=== PATIENT | female | born 1950 | race Two or more races ===

== ENCOUNTER 2018-12-28 10:28 | Emergency (ER) | payer MEDICARE, OTHER ==
[~2018-12-28] VITALS: Ht 160 cm; Wt 77.1 kg
--- NOTE | 2018-12-28 10:41 | NUR ---
BIBRA WITH DAUGHTER FROM A GRADUATION. PT AAOX4. BREATHING EVEN AND UNLABORED. C/O DIZZYNESS AND HEADACHE 3/10 FELT ON PARIETAL AND OCCIPITAL AREA STARTED AT 930AM. NO NEUROLOGIC DEFICIT NOTED. RA REPORTS THAT PT'S BP WAS IN THE 190'S ON FIELD. TO ER BED 4. AWAITING MD FOR EVAL.
--- NOTE | 2018-12-28 11:20 | NUR ---
IV OBTAINED ON L AC ON 20G. BLOOD DARWN AND GIVEN TO [employer] PROFESSOR AT BEDSIDE
[2018-12-28 11:24] LABS: BASOPHILS # (AUTO) 0.1 /CMM (0.0-0.2); BASOPHILS % (AUTO) 1.1 % (0.0-2.0); EOSINOPHILS % (AUTO) 2.2 % (0.0-6.0); HEMATOCRIT 35 % (33-45); HEMOGLOBIN 12.1 g/dL (11.5-14.8); LYMPHOCYTES # (AUTO) 1.5 /CMM (0.8-4.8); LYMPHOCYTES % (AUTO) 23.3 % (20.0-44.0); MEAN CORPUSCULAR HGB CONC 34 g/dl (31.0-36.0); MEAN CORPUSCULAR VOLUME 86 fL (82-100); MONOCYTES # (AUTO) 0.4 /CMM (0.1-1.30); MONOCYTES % (AUTO) 5.9 % (2.0-12.0); NEUTROPHILS # (AUTO) 4.3 /CMM (1.8-8.9); NEUTROPHILS % (AUTO) 67.5 % (43.0-81.0); PLATELET COUNT (AUTO) 249 /CMM (150-450); RED BLOOD CELL COUNT(AUTO) 4.08 MIL/uL (4.0-5.2); WHITE BLOOD COUNT (AUTO) 6.4 K/uL (4.3-11.0)
--- NOTE | 2018-12-28 11:24 | NUR ---
EKG AND XRAY AT BEDSIDE
[2018-12-28 11:35] LABS: CALCIUM, SERUM 9.1 mg/dL (8.5-10.1); CARBON DIOXIDE 29 mmol/L (21-32); CHLORIDE 99 mmol/L (98-107); CREATININE 0.7 mg/dL (0.6-1.3); GLUCOSE 242 mg/dL (74-106); POTASSIUM 3.7 mmol/L (3.5-5.1); SODIUM SERUM 137 mmol/L (136-145); UREA NITROGEN, BLOOD 14 mg/dL (7-18)
--- NOTE | 2018-12-28 12:08 | NUR ---
PT AMBULATED TO BATHROOM WITH 1 PERSON ASSIST.
[2018-12-28] MEDS ORDERED: IV NS 0.9% 1,000 ML BAG IV ONE (13:00)
[2018-12-28] MEDS ORDERED: MECLIZINE HCL 12.5 MG TABLET ONE (13:00)
[2018-12-28] MEDS ORDERED: MECLIZINE HCL 12.5 MG TABLET PO ONE (13:00)
--- NOTE | 2018-12-28 13:20 | NUR ---
CALLED OFFICE OF PCP DR LEMA, TANK FILLER NINFA KAM NP SPOKE TO DR NARVAEZ Addendum: 12/28/18 at [address] LEMA [facility] OFFICE [phone]
--- NOTE | 2018-12-28 13:42 | NUR ---
[facility] CALLED FOR PACEMAKER INTERROGATION. AWAITING CALL BACK.
--- NOTE | 2018-12-28 15:31 | NUR ---
Patient discharged to home in stable condition. Written and verbal after care instructions given. Patient verbalizes understanding of instruction.IV removed. Catheter intact and site benign. Pressure and 4x4 applied to site. No bleeding noted.
[2018-12-28 15:32] VITALS: BP 136/82
== END 2018-12-28 15:33 | disposition home or self-care (01) ==
LOC: ER 10:29
DX: R42 Dizziness and giddiness (principal); R00.2 Palpitations; E11.9 Type 2 diabetes mellitus without complications; I10 Essential (primary) hypertension; Z95.0 Presence of cardiac pacemaker; Z88.1 Allergy status to other antibiotic agents
CPT/HCPCS: 36415; 71045; 80048; 84484; 85025; 93005; 96360; 99284; J7030; J8597; J7040